=== PATIENT | male | born 1980 | race Caucasian/White ===

== ENCOUNTER 2019-09-01 02:48 | Emergency (ER) | payer SELFPAY ==
[2019-09-01 03:00] VITALS: BP 155/100; PULSE 80; RESP 20; TEMP 36.3; O2SAT 97
--- NOTE | 2019-09-01 03:14 | ED_ITS ---
HPI - Extremity Injury (Lower) General Chief Complaint: Extremity Injury, Lower Stated Complaint: pop in right knee Time Seen by Provider: 09/01/19 03:06 Mode of arrival: Wheelchair History of Present Illness HPI Narrative: 39-year-old otherwise healthy gentleman presents with knee pain. He'd been bending down with his knees at an angle and felt an acute pop in the right knee with immediate pain. He was able to stand up it was tight and troublesome initially in over the course of the last 6 hours has gotten progressively worse and he is having trouble sleeping due to the pain. He has not yet tried jppx-bmb-wyfepas medications. He has never had similar injuries or chronic knee problems. He notes that the pain is severe enough that it's causing some nausea and diaphoresis. Related Data Previous Rx's Medication Instructions Recorded oxycodone-acetaminophen 1 tab PO Q8H PRN 3 Days #10 tab 09/01/19 Allergies Allergy/AdvReac Type Severity Reaction Status Date / Time No Known Drug Allergies Allergy Verified 09/01/19 04:18 Review of Systems Review of Systems Narrative: Denies ? fever ? cough ? cold ? chills ? chest pain ? dyspnea ? orthopnea ? wheezing ? abdominal pain ? change to bowel or bladder habits ? nausea vomiting ? skin changes ? rashes Patient History Social History Smoking Status: Current every day smoker Smoking Status: Current every day smoker alcohol intake frequency: a few times a month Substance Use Type: marijuana Exam Narrative Exam Narrative: General: Alert appropriate in no acute distress Respiratory: Able to speak in full sentences, no obvious respiratory distress Skin: No obvious rashes, warm and dry Neurologic: Grossly intact no obvious asymmetries or abnormalities Psych, appropriate insight and affect, cooperative Lower extremity: Right knee with moderate effusion, no warmth no redness. Range of motion is limited by the effusion and pain. There is no tenderness in the calf and he is neurovascularly intact. Full knee exam and stability exam is limited by effusion and pain Initial Vital Signs Initial Vital Signs: Vital Signs Temperature 97.3 F L 09/01/19 03:00 Pulse Rate 80 09/01/19 03:00 Respiratory Rate 20 09/01/19 03:00 Blood Pressure 155/100 H 09/01/19 03:00 Pulse Oximetry 97 09/01/19 03:00 Course Orders Ordered: ED Orders 09/01/19 03:14 XR knee RT 3V Stat Discontinued Medications Ketorolac Tromethamine (Toradol) 30 mg IM NOW ONE Stop: 09/01/19 03:15 Last Admin: 09/01/19 03:19 Dose: 30 mg Documented by: MMCFARL Oxycodone/Acetaminophen (Endocet 5/325 Prepack) 1 bottle MISC SEEINSTR ONE Stop: 09/01/19 04:17 Vital Signs Vital signs: Vital Signs - 8 hr 09/01/19 03:00 Temperature 97.3 F L Pulse Rate 80 Respiratory Rate 20 Blood Pressure 155/100 H Pulse Oximetry 97 MDM - Extremity Injury (Lower) Imaging Data X-ray right knee: Attestation: I personally reviewed and interpreted this imaging study as follows: My Impression: Effusion is noted no bony injury specifically no bony fragments or chip fractures appreciated MDM Narrative Medical decision making narrative: 39-year-old gentleman presents with history of bending down with his knees out with an acute pop. Significant concern for anterior cruciate ligament injury. Exam is limited by pain and effusion. Patient is placed in a knee immobilizer given crutches given 10 tablets of Pe rcocet and instructions to follow-up with orthopedics sometime next week for definitive exam imaging and care Discharge Plan Departure Patient Disposition: Home Clinical Impression: Internal derangement of knee Qualifiers: Laterality: right Qualified Code(s): M23.91 - Unspecified internal derangement of right knee Instructions: How to Use Crutches, DI for Knee Pain Activity Restrictions/Additional Instructions: Thank you for coming in today. I'm sorry you've injured her knee. The x-ray today does not show a fracture however an MRI may be necessary to figure out what actually was injured. Please use the knee immobilizer and crutches to help with stability and prevent another fall or further injury. He will need to follow-up with [facility], Dr. Jamison is on-call this evening. Please call their office tomorrow to schedule an appointment Ice will certainly be helpful. I am going to prescribe Percocet to use for severe pain. I would recommend taking 2 ebgb-kyg-cocwcij ibuprofen and 1 Percocet together every 6 hours for pain control as needed. For [id number] pain only to ibuprofen and 1 Tylenol will be just as effective. Please take care in using Percocet it is a narcotic it can be addictive and it typically causes some constipation. Please do not drive or operate heavy machinery while taking Percocet If you have new or additional symptoms feel like you've re-injured the area or have other concerns please feel free to return to the emergency department and I am happy to re-evaluate I hope you heal quickly Prescriptions: New oxycodone-acetaminophen 5-300 mg tablet 1 tab PO Q8H PRN (Reason: pain) 3 Days Qty: 10 RF: 0 Referrals: Gustavo Jamison MD [Physician] -
--- NOTE | 2019-09-01 03:14 | DI.RAD.S_ITS ---
PROCEDURE: XR KNEE RT 3V INDICATIONS: Acute pain and effusion TECHNIQUE: 3 views of the knee were acquired. COMPARISON: None. FINDINGS: Bones: No fractures or dislocations. No suspicious bony lesions. Soft tissues: Small suprapatellar joint effusion. No suspicious soft tissue calcifications. IMPRESSION: 1. No fracture. No osseous lesion. If symptoms and/or clinical suspicion for pathology persists, further assessment with repeat radiographs (7-10 days) or advanced imaging (e.g. CT, MRI or bone scan) may be helpful. 2. Small nonspecific joint effusion. . Dictated by: Carrie Piedra MD, PhD on 09/01/2019 at 8:20 Approved by: Carrie Piedra MD, PhD on 09/01/2019 at 8:21
[2019-09-01] MEDS: KETOROLAC 60 MG/2 ML VIAL 30 MG IM (03:19)
[2019-09-01 04:29] VITALS: BP 151/101; PULSE 80; RESP 18; O2SAT 99
== END 2019-09-01 04:34 | disposition home or self-care (01) ==
PROVIDERS: Emergency Provider Emergency Medicine
DX: M23.91 Unspecified internal derangement of right knee (principal)
CPT/HCPCS: 73562; 96372; 99283; 99284; J1885

== ENCOUNTER → 2020-03-27 14:27 | Outpatient (CLI) | payer OTHER, SELFPAY ==
[2020-03-28 09:35] LABS: COVID19 Sendout Not Detected (Not Detect)
== END ==
PROVIDERS: Visit Provider Physician Assistant
DX: Z11.59 Encounter for screening for other viral diseases (principal)
CPT/HCPCS: 87635

== ENCOUNTER → 2020-07-22 12:15 | Outpatient (CLI) | payer SELFPAY ==
[2020-07-22 15:23] LABS: Urine N gonorrhoeae NOT DETECTED
[2020-07-22 15:38] LABS: Urine Chlamydia NOT DETECTED
[2020-07-23 11:07] LABS: HSV 2 IGG AB < 0.91 index (0.00-0.90); HSV1IGG < 0.91 index (0.00-0.90)
[2020-07-23 17:47] LABS: Hepatitis B Surface Antigen NEGATIVE s/c (NEGATIVE)
[2020-07-23 18:00] LABS: HIV 1 & 2 Ab/Ag 4th Gen Combo NEGATIVE (NEGATIVE); Hep C Virus Ab w/Reflex Quant NEGATIVE s/c (NEGATIVE)
[2020-07-24 14:10] LABS: RPR Screen Non Reactive (Non Reactive)
== END ==
PROVIDERS: Visit Provider Nurse Practitioner
DX: Z11.3 Encounter for screening for infections with a predominantly sexual mode of transmission (principal)
CPT/HCPCS: 36415; 86592; 86695; 86696; 86803; 87340; 87389; 87491; 87591

== ENCOUNTER → 2021-05-06 11:24 | Outpatient (CLI) | payer OTHER, SELFPAY ==
[2021-05-06 15:35] LABS: COVID19 -Nasal RAPID Negative (Negative)
== END ==
PROVIDERS: Visit Provider Nurse Practitioner Family
DX: Z20.822 Contact with and (suspected) exposure to COVID-19 (principal); R51.9 Headache, unspecified
CPT/HCPCS: 87635

== ENCOUNTER 2023-05-05 09:37 | Day surgery (SDC) | payer SELFPAY ==
[2023-04-29 10:45] VITALS: BMI 27.7
[2023-05-05] MEDS: LACTATED RINGERS 1,000 ML 42 ML IV (10:48)
[2023-05-05 10:50] VITALS: BP 160/99; PULSE 79; RESP 16; TEMP 36.9; O2SAT 100; BMI 27.7
--- NOTE | 2023-05-05 11:08 | PM.PREOP ---
Pre-operative Note COVID-19 COVID-19 status: Not tested Interval Note History & Physical reviewed/Exam performed by Physician: Yes Changes to H&P: No ASA Class (for procedural sedation): I
[2023-05-05] MEDS: CEFAZOLIN 2 GM/100 ML PREMIX 100 ML IV (11:40)
[2023-05-05] MEDS: BUPIVACAINE 0.5% (PF) 30 ML, EPINEPHrine 0.15 MG INJ (11:57)
[2023-05-05 12:47] VITALS: BP 176/114; PULSE 117; RESP 14; TEMP 36.6; O2SAT 99
[2023-05-05 12:52] VITALS: BP 155/108; PULSE 88; RESP 14; O2SAT 99
--- NOTE | 2023-05-05 12:52 | P.OP_ITS ---
Operative Date/Time/Diagnoses Date of procedure: 05/05/23 Time of procedure: 12:52 Pre-op diagnosis: Left inguinal hernia Post-op diagnosis: same Procedure & Clinicians Procedure: Open left inguinal hernia repair with mesh Same procedure as scheduled: Yes Surgeon: Chauncey Reeves Marketing Production Specialist: Marino Krishna Anesthesia Type: General Operative Notes Procedure in detail: Preoperative antibiotic was administered. The patient was brought to the o perating room and placed on the table in supine position general anesthesia was induced. The left groin was prepped and draped in the normal fashion and a time-out was performed. Roughly 10 mL of local anesthetic were injected into the skin and subcutaneous adipose tissue over the left groin. A 5 cm incision was made over the left inguinal canal. Dissection was carried down through the subcutaneous adipose tissue. A bridging vein was cauterized. We exposed the external oblique aponeurosis in the direction of the fibers. Additional local was injected deep to the aponeurosis. A 15 blade scalpel was used to arlette the external oblique aponeurosis. Metzenbaum scissors were used to carefully open the aponeurosis in the direction of the fibers taking care not to injure the underlying ilioinguinal nerve. We completely exposed the inguinal canal. The cord was dissected free from the inguinal ligament and floor of the inguinal canal and the external oblique aponeurosis was dissected off of the internal oblique taking care not to injure the hypogastric nerve. We encircled the cord with a [place] drain for retraction. There was an indirect hernia sac along with a weak floor. We di ssected the hernia sac off the cord structures. There was some bleeding very close to the vas deferens which was controlled with bipolar cautery. We placed a polypropylene mesh over the inguinal canal floor. The mesh was secured with multiple interrupted 3-0 Prolene sutures to the pubic tubercle and shelving edge of the inguinal ligament as well as to the conjoint tendon medially. We overlapped the tails to recreate an internal ring and secured the medial tail to the inguinal ligament with additional sutures. We injected some more local into the fatty tissue in the inguinal canal and cord. Finally, we removed the Christian drain and closed the external oblique fascia with a running 3-0 Vicryl suture. Skin was closed with interrupted 3-0 Vicryl dermal sutures and a running 4 Monocryl subcuticular stitch. EBL 5 mL The patient was awakened and brought to recovery room. Marino QUINTERO provided assistance with exposure, retraction and closure of incisions. Post-operative Condition: stable Disposition: PACU
[2023-05-05 12:57] VITALS: BP 165/107; PULSE 80; RESP 12; TEMP 36.5; O2SAT 99
[2023-05-05] MEDS: OXYCODONE/ACETAMINOPHEN 5/325 TABLET 1 TAB PO (13:10)
[2023-05-05 13:26] VITALS: BP 149/99; PULSE 81; RESP 18; O2SAT 99
== END 2023-05-05 13:28 | disposition home or self-care (01) ==
PROVIDERS: Referring Provider Surgery; Visit Provider Surgery
PROC: (CPT 49505; principal; 2023-05-05 11:15)
DX: K40.90 Unilateral inguinal hernia, without obstruction or gangrene, not specified as recurrent (principal)
CPT/HCPCS: 49505; J0171; J0330; J0690; J1100; J2405; J2704; J3010

== ENCOUNTER 2024-08-08 14:52 | Emergency (ER) | payer OTHER, SELFPAY ==
[2024-08-08] VITALS (18 sets, daily range): BP systolic 179–215; BP diastolic 110–136; PULSE 69–92; RESP 16–25; TEMP 37.3; O2SAT 97–100; BMI 27.4
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
[2024-08-08 15:53] LABS: Add Manual Diff / Slide Review NO; Basophils Absolute Auto 100 /uL (0-100); Basophils Percent Auto 0.7 % (0-2); Eosinophils Absolute Auto 0 /uL (0-450); Eosinophils Percent Auto 0.2 % (2-4); Hematocrit 47.3 % (41-53); Hemoglobin 16.2 g/dL (13.5-17.5); Lymphocytes Absolute Auto 1200 /uL (1100-4500); Lymphocytes Percent Auto 9.4 % (25-40); Mean Corpuscular HGB Conc 34.3 % (30-36); Mean Corpuscular Hemoglobin 31.9 PG (26-34); Mean Corpuscular Volume 92.9 fL (80-100); Monocytes Absolute Auto 900 /uL (0-900); Monocytes Percent Auto 6.7 % (3-14); Neutrophils Absolute Auto 10700 /uL (1500-7000); Platelet Count 275 X10^3/uL (150-400); Red Blood Cell Count 5.09 X10^6/uL (4.5-5.9); Red Cell Distribution Width 12.9 % (11.6-14.8); White Blood Cell Count 12.9 X10^3/uL (4.5-11.0)
[2024-08-08 15:59] LABS: Alanine Aminotransferase 58 IU/L (<50); Albumin 4.9 g/dL (3.5-5.0); Albumin Globulin Ratio 1.3 (1.0-2.8); Alkaline Phosphatase 109 U/L (38-126); Aspartate Aminotransferase 64 IU/L (17-59); BUN Creatinine Ratio 17.6 (6-22); Blood Urea Nitrogen 13 mg/dL (9-20); Calcium 9.4 mg/dL (8.4-10.2); Carbon Dioxide 18 mmol/L (22-32); Chloride 105 mmol/L (98-107); Estimated Glomerular Filt Rate > 60 mL/min (>60); Globulin 3.7 g/dL (1.7-4.1); Glucose 105 mg/dL (70-100); HEMOLYSIS 41 (0-50); Potassium 3.9 mmol/L (3.4-5.1); Sodium 135 mmol/L (137-145); Total Protein 8.6 g/dL (6.3-8.2)
[2024-08-08] MEDS: HYDROMORPHONE 1 MG INJ IV ×2 (16:16→18:19)
[2024-08-08] MEDS: KETOROLAC 30 MG/ML VIAL 15 MG IV (16:52)
[2024-08-08] MEDS: HYDROMORPHONE 0.5 MG INJ IV ×2 (16:52→21:17)
--- NOTE | 2024-08-08 17:26 | DI.RAD.S_ITS ---
PROCEDURE: XR KNEE RT 3V INDICATIONS: pain injury TECHNIQUE: 3 views of the knee were acquired. COMPARISON: [facility], CR, XR KNEE RT 3V, 09/01/2019, 3:20. FINDINGS: Bones: No fractures or dislocations. No suspicious bony lesions. Soft tissues: No substantial joint effusion. No suspicious soft tissue calcifications. IMPRESSION: No acute bony abnormality or significant effusion. If there are persistent symptoms or clinical suspicion for pathology, then repeat radiographs or advanced imaging (CT or MRI) may be considered for further evaluation. Dictated by: Derrick Carr M.D. on 08/08/2024 at 18:55 Approved by: Derrick Carr M.D. on 08/08/2024 at 18:56
[2024-08-08] MEDS: ACETAMINOPHEN IV 1,000 MG/100 ML VIAL 400 MG IV (18:19)
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
[2024-08-08] MEDS: OXYCODONE IR 5 MG TABLET PO (19:06)
[2024-08-08] MEDS: OXYCODONE/APAP 5/325 PREPACK 1 BOTTLE MISC (21:18)
== END 2024-08-08 22:03 | disposition home or self-care (01) ==
PROVIDERS: Emergency Medicine; Emergency Provider Emergency Medicine; PCP Family Medicine
DX: S22.068A Other fracture of T7-T8 thoracic vertebra, initial encounter for closed fracture (principal); R07.9 Chest pain, unspecified; M25.561 Pain in right knee; W17.89XA Other fall from one level to another, initial encounter; Y93.23 Activity, snow (alpine) (downhill) skiing, snowboarding, sledding, tobogganing and snow tubing; Y92.828 Other wilderness area as the place of occurrence of the external cause
CPT/HCPCS: 71260; 72072; 73562; 74177; 80053; 85025; 96365; 96375; 96376; 99284; J0134; J1171; J1885; Q9967

== ENCOUNTER → 2024-08-26 06:53 | Outpatient (CLI) | payer OTHER, SELFPAY ==
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
--- NOTE | 2024-08-26 06:55 | DI.CT.S_ITS ---
PROCEDURE: CT THORACIC SPINE WO CON INDICATIONS: fx T7-T8 TECHNIQUE: Noncontrast 3 mm thick sections acquired through the region of interest in the thoracic spine. Sagittal and coronal reformats were then constructed. For radiation dose reduction, the following was used: automated exposure control. COMPARISON: [facility], CT, CT CHEST ABD PEL W CON, 08/08/2024, 16:18. [facility], CR, XR THORACIC SPINE 3V, 08/08/2024, 19:17. [facility], MR, MR THORACIC SPINE WO CON, 08/26/2024, 7:17. FINDINGS: Image quality: Excellent. Bones: As seen on previous study, subacute appearing compression deformity involving T8 vertebral body is seen with up to 60% loss of T8 vertebral body height not significantly changed from previous study. Anterior displacement of a fractured fragment from superior endplate of T8 is seen. Mild retropulsion of inferior posterior wall of T8 causing mild central canal stenosis. There is also subcortical sclerosis and up to 20% loss of T9 vertebral body height suggestive of acute to subacute compression fracture. No other compression fracture or spondylolisthesis. No other levels of significant central canal stenosis. Soft tissues: Mild paraspinous soft tissue edema surrounding T8 and T9 vertebral body is seen. Visualized posteromedial lungs appear clear. IMPRESSION: 1. Acute to subacute appearing compression deformities involving T8 and T9 levels as above. Slight retropulsion of inferior posterior wall of T8 causing mild central canal stenosis at this level. No other compression fracture or significant spondylolisthesis. 2. Mild paraspinous soft tissue edema at T8 and T9 levels. No soft tissue mass or drainable fluid collection. Dictated by: Fish Ferguson M.D. on 08/26/2024 at 10:36 Approved by: Fish Ferguson M.D. on 08/26/2024 at 11:02
== END ==
PROVIDERS: PCP Family Medicine; Referring Provider Neurological Surgery; Visit Provider Neurological Surgery
DX: S22.069A Unspecified fracture of T7-T8 vertebra, initial encounter for closed fracture (principal); M43.8X4 Other specified deforming dorsopathies, thoracic region; M48.04 Spinal stenosis, thoracic region; M51.34 Other intervertebral disc degeneration, thoracic region; M79.89 Other specified soft tissue disorders
CPT/HCPCS: 72128; 72146

== ENCOUNTER → 2024-09-20 13:45 | Outpatient (CLI) | payer OTHER, SELFPAY ==
--- NOTE | 2024-09-20 13:46 | DI.RAD.S_ITS ---
PROCEDURE: XR DEXA AXIAL SKELETON INDICATIONS: Screening for osteoporosis COMPARISON: [facility], CT, CT CHEST ABD PEL W CON, 08/08/2024, 16:18. FINDINGS: Lumbar Spine: Bone mineral density 0.727 g/cm2, T score not applicable. Left Femoral Neck: Bone mineral density 0.642 g/cm2, T score not applicable. Left Hip: Bone mineral density 0.733 g/cm2, T score not applicable. Fracture Risk Calculation (when applicable): 10-year fracture risk of a major osteoporotic fracture 23 percent and of a hip fracture 7.7 percent. (T score greater or equal to -1.0 to: NORMAL) (T score from -1.1 to -2.4: OSTEOPENIA) (T score less than or equal to -2.5: OSTEOPOROSIS) IMPRESSION: T-scores not available due to lack of age-matched controls. However, the lumbar spine bone density is below the acceptability normal range by 3.2 standard deviations, while the left hip/femoral neck measurements are at the low end of the normal range. Visually, the patient is at least osteopenic. On the comparison CT chest abdomen pelvis exam from 08/08/2024, the average Hounsfield unit density measured at the L1 vertebral body is 86.9 HU, which has greater than 90% specificity for osteoporosis. Follow-up guidelines as follows: Osteoporosis: Consider a repeat DEXA and Vertebral Fracture Assessment (VFA) exam in 2 years or sooner if medically necessary, to reassess this patient's status. Osteopenia: Consider a repeat DEXA in 2-3 years to reassess this patient's status, or if there is a new clinical indication. Normal: Consider a repeat DEXA in 5 years or sooner, or if there is a new clinical indication. All treatment decisions require clinical judgment and consideration of individual patient factors, including patient preferences, comorbidities, previous drug use, risk factors not captured in the FRAX model (e.g., frailty, falls, vitamin D deficiency, increased bone turnover, interval significant decline in bone density ) and possible under- or over-estimation of fracture risk by FRAX. In addition, the NOF Guide recommends that FDA-approved medical therapies be considered in postmenopausal women and men age >= 50 years with a: * Hip or vertebral (clinical or morphometric) fracture * T-score of <=-2.5 at the spine or hip * Ten-year fracture probability by FRAX of >= 3% for hip fracture or >=20% for major osteoporotic fracture. Dictated by: Gurwinder Amezcua M.D. on 09/20/2024 at 15:37 Approved by: Gurwinder Amezcua M.D. on 09/20/2024 at 15:46
== END ==
PROVIDERS: PCP Family Medicine; Referring Provider Family Medicine; Visit Provider Family Medicine
DX: S22.060D Wedge compression fracture of T7-T8 vertebra, subsequent encounter for fracture with routine healing (principal); M85.89 Other specified disorders of bone density and structure, multiple sites
CPT/HCPCS: 77080

== ENCOUNTER → 2024-09-21 12:04 | Outpatient (CLI) | payer OTHER, SELFPAY ==
--- NOTE | 2024-09-21 12:10 | DI.RAD.S_ITS ---
PROCEDURE: XR THORACIC SPINE 3V INDICATIONS: Fracture in vertibrae TECHNIQUE: 3 views of the thoracic spine were acquired. COMPARISON: [facility], CR, XR THORACIC SPINE 3V, 08/08/2024, 19:17. FINDINGS: Thoracic spine curvature and alignment: Normal. Bones: Severe T8 compression fracture is unchanged from the comparison exam 6 weeks ago. 50% loss of vertebral height anteriorly. No extension of the pedicles or posterior elements Disc spaces: Severe T10-11 degenerative disc disease noted. Intervertebral foramen: Grossly normal in width. Soft tissues: No soft tissue swelling, calcification or mass. IMPRESSION: Severe T8 compression fracture-stable Dictated by: Genaro Alfaro M.D. on 09/22/2024 at 13:04 Approved by: Genaro Alfaro M.D. on 09/22/2024 at 13:06
== END ==
PROVIDERS: PCP Family Medicine; Referring Provider Neurological Surgery; Visit Provider Neurological Surgery
DX: S22.069D Unspecified fracture of T7-T8 vertebra, subsequent encounter for fracture with routine healing (principal); X58.XXXA Exposure to other specified factors, initial encounter
CPT/HCPCS: 72072